=== PATIENT | female | born 1990 | race Caucasian/White ===

== ENCOUNTER 2019-08-22 02:50 | Emergency (ER) | payer OTHER ==
[~2019-08-22] VITALS: Ht 157.5 cm; Wt 65.8 kg
[2019-08-22 02:50] VITALS: BP 124/80
--- NOTE | 2019-08-22 03:05 | NUR ---
PT CAME INTO THE ED C/O ABDOMINAL PAIN RADIATING TO THE BACK. PT ENDORSES PAIN 02/21 PS. -NVD. PT AAOX4, VSS, CONNECTED TO THE MONITOR AND POX.
[2019-08-22 03:37] LABS: APPEARANCE,URINE CLEAR (CLEAR); BILIRUBIN,URINE NEGATIVE (NEGATIVE); BLOOD, URINE LARGE Ery/uL (NEGATIVE); COLOR,URINE YELLOW (YELLOW); KETONES,URINE NEGATIVE (NEGATIVE); LEUKOCYTE ESTERASE ,URINE NEGATIVE (NEGATIVE); NITRITE, URINE NEGATIVE (NEGATIVE); PROTEIN,URINE NEGATIVE (NEGATIVE); UGLUCOSE NEGATIVE (NEGATIVE); UROBILINOGEN,URINE 0.2 EU/dL (0.2)
[2019-08-22] MEDS ORDERED: KETOROLAC TROMETHAMINE INJ 30 MG/ML VIAL ONE (03:58)
[2019-08-22] MEDS ORDERED: KETOROLAC TROMETHAMINE INJ 30 MG/ML VIAL IM ONE (04:00)
--- NOTE | 2019-08-22 05:22 | NUR ---
Patient discharged to home in stable condition. Written and verbal after care instructions given. Patient verbalizes understanding of instruction.
== END 2019-08-22 05:22 | disposition home or self-care (01) ==
LOC: ER 02:54
DX: N39.0 Urinary tract infection, site not specified (principal)
CPT/HCPCS: 81001; 84703; 96372; 99283; J1885; 81000-TC

== ENCOUNTER 2019-09-10 10:55 | Emergency (ER) | payer OTHER ==
[~2019-09-10] VITALS: Ht 157.5 cm; Wt 65.8 kg
[2019-09-10 11:07] VITALS: BP 134/71
[2019-09-10] MEDS ORDERED: methylPREDNISolone SOD SUCC 125 MG/2ML VIAL ONE (11:25)
[2019-09-10] MEDS ORDERED: methylPREDNISolone SOD SUCC 125 MG/2ML VIAL IM ONE (11:30)
== END 2019-09-10 11:39 | disposition home or self-care (01) ==
LOC: ER 10:58
DX: L50.8 Other urticaria (principal)
CPT/HCPCS: 96372; 99283; J2930